=== PATIENT | male | born 1990 | race Caucasian/White ===

== ENCOUNTER 2023-10-21 08:54 | Outpatient (CLI) | payer MEDICAID ==
[~2023-10-21 08:54] MED LIST: GADOTERATE MEGLUMINE 10 MMOL/20 ML VIAL ONE
--- NOTE | 2023-10-21 13:59 | MRI Report ---
PROCEDURE: Brain W/WO INDICATIONS: MIGRAINES CONTRAST: 12.8ml Clariscan TECHNIQUE: Noncontrast axial T1 spin echo, axial T2 fast spin echo, sagittal and axial FLAIR, coronal T2 fast sp in echo, axial gradient echo, axial diffusion and ADC through the brain. After the administration of contrast, axial and coronal T1 spin echo with fat saturation through the brain. COMPARISON: None. FINDINGS: Image quality: Excellent. CSF spaces: Basal cisterns are patent. No extra-axial fluid collections. Ventricles are normal in size and shape. Brain: No midline shift. No intracranial bleeds or masses. No abnormal intracranial enhancement. There is cerebral volume loss for age. There is periventricular white matter chronic small vessel is chemic change. The brainstem appears normal. Diffusion-weighted images demonstrate no acute ischemi c insults. No chronic ischemic insults. Normal intravascular flow voids are present. Skull and face: Calvarial marrow is normal in signal. Orbits appear normal. Sinuses: Sinuses and to a mild scattered mucosal thickening. Minimal appearance of frothy fluid is p resent within the sphenoid sinuses. Mastoid air cells are clear. IMPRESSION: Mild frothy fluid within the sphenoid sinus suggestive of acute/subacute sinusitis. Reviewed by: Claudia Dudley MD on 10/21/2023 1:58 PM PST Approved by: Claudia Dudley MD on 10/21/2023 1:58 PM PST Station ID: [id number]
[2023-10-21] MEDS: GADOTERATE MEGLUMINE 10 MMOL/20 ML VIAL IVP ONE (16:03)
== END 2023-10-21 08:55 | disposition home or self-care (01) ==
LOC: DI 08:54
PROVIDERS: ATTEND Physician Assistant
DX: G43.909 Migraine, unspecified, not intractable, without status migrainosus (principal); J34.89 Other specified disorders of nose and nasal sinuses
CPT/HCPCS: 70553; A9575

== ENCOUNTER 2023-12-09 12:37 | Outpatient (CLI) | payer MEDICAID ==
--- NOTE | 2023-12-09 13:29 | Sleep Patient Instructions ---
Sleep Center Visit Summary - Patient Visit Information Reason for Visit: Initial consult for evaluation of sleep disordered breathing and other sleep issues. - Patient Instructions Instructions Attached: Sleep Study Home Monitor Additional Instructions: You will be completing a sleep study, either an in-lab polysomnography (PSG) or home sleep study (HST). You will follow-up in the sleep care office after the sleep study is completed to hear the results and talk about therapy, if needed. You will be called by our office staff to schedule this appointment, but you may contact us with any questions. - Clinic Information Contact: [facility] [address] [place] [address] [email or web address] T: [phone]
--- NOTE | 2023-12-09 13:34 | SLEEP CARE CONSULTATION ---
Information from patient questionnaire entered by Daniel Calderon. I have reviewed and concur with the information entered by Daniel Calderon. This document represents the service I personally performed and the decisions made by me, Zena Trevino ARNP. History of Present Illness Service Date and Time: 12/09/2023 1237 Reason for Visit: New patient, Previously diagnosed sleep apnea Chief Complaint: reports: Unrefreshed sleep, Excessive daytime sleepiness, Observed pauses in breathing, Fatigue, Frequent awakenings at night Date of Onset: 20 + years Usual bedtime: 0200 Time it takes to fall asleep: Varies Snores at night: Yes Observed to quit breathing while asleep: Yes Sleeps alone due to snoring: No (N/A) Number of times waking at night: Depends on various factors Reasons for waking at night: reports: Gasping for air, Pain, Bathroom, Other (Noise, cold, unknown reasons). denies: Choking Toss, Turn, or Twitch while sleeping: Yes Recalls having dreams: Yes Usually gets out of bed at: Try for noon - 2 at latest Feels refreshed in the morning: No Morning headache: Yes (2 times a week; Usually resolves with coffee, smokes, meds) Sleepy or fatigued during the day: Yes Ever fallen asleep while driving: No Takes day naps: Yes (Sometimes; 2 times a week at the most) Dreams during day naps: No (I don't recall any) Prior sleep studies: Yes Year and Where: [place] [address] sleep center? Years ago Additional HPI information: I had the pleasure of seeing BUCKY TRINIDAD today regarding the possibility of him having a sleep disorder. His current complaints are excessive daytime sleepiness, fatigue, frequent night awakenings, observed pauses in breathing and unrefreshed sleep. He was diagnosed in his early teens with sleep apnea and was on a PAP device. He has been on the streets for 17 years and has been unable to use a CPAP. He is now with a girlfriend and has a 11 year old daughter too. He has moved here from [place]. He is trying to get his life together and wants to be able to rest well. He did rest well when using his CPAP when he was a teenager after he got used to using it. He is trying to regulate his sleep and a schedule so that he can hold a regular job. He does snore and have pauses of breathing when sleeping. He does not wake up feeling refreshed and will sometimes wake up with headaches. He states that headaches have improved with him getting on medications. - Parasomnia Symptoms Ever been unable to move upon waking from sleep: Yes (Sometimes?) Walks in sleep: No Talks in sleep: Yes Ever acted out dreams in sleep: No Ever felt weak in the knees when startled or emotional: No Bothered by creepy, crawly, restless sensations in legs: Yes (Sometimes; fidgits during the day; has ADHD) Problems with memory or concentration: Yes (both) Subjective Initial [place] Sleepiness Scale score: 9 (in 2023) Past Medical History Past Medical History: reports: Anxiety, Asthma, Depression, Attention deficit Social History The patient is not employed. Patient is single and lives in [place]. Have you smoked in the past 12 months: Yes Cigarettes per day (20/pack): 20 Years of smokin Smoking Pack Years: 18.0 Alcohol use: No Caffeine use: Yes Caffeine amount and frequency: Cup of coffee, maybe two daily Family History Family history of sleep disordered breathing: Yes Family Hx Sleep Apnea: Father: Snoring, Sleep apnea - Treated Allergies and Home Medications Known drug allergies: No Drug allergies reviewed: Yes Home medication list reviewed: Yes (as listed) Allergy and home medication list: Allergies No Known Drug Allergies Allergy (Verified 12/09/23 13:23) Home Medications Albuterol See Rx Instructions .ROUTE .COMPLEX 12/09/23 [History] Albuterol Sulfate See Rx Instructions .ROUTE .COMPLEX 12/09/23 [History] Breyna 160-4.5 Mcg Inhaler See Rx Instructions .ROUTE .COMPLEX 12/09/23 [History] Fluticasone See Rx Instructions .ROUTE .COMPLEX 12/09/23 [History] Gabapentin 800 mg ORAL BID 12/09/23 [History] Hydroxyzine HCl 50 mg ORAL DAILY 12/09/23 [History] Sumatriptan See Rx Instructions .ROUTE .COMPLEX 12/09/23 [History] Topiramate See Rx Instructions .ROUTE .COMPLEX 12/09/23 [History] Review of Systems Weight gain over past 5 years: 0 Weight loss over past 5 years: 0 Cardiovascular: denies: high blood pressure Respiratory: reports: shortness of breath, chronic cough Gastrointestinal: denies: heartburn Neurological: reports: headaches, gait or balance problems (Balance problems) Psychiatric: reports: Attention Deficit Hyperactivity, anxiety, depression Ear/Nose/Throat: reports: nasal congestion, sinus problems, dry mouth/throat. denies: tonsillectomy Endocrine: reports: sluggishness (/tired), too hot or cold, excessive thirst Musculoskeletal: reports: joint pain (/stiffness), neck pain, back pain, joint swelling, muscle pain or cramping (Muscle pain) Physical Exam Vital signs obtained and entered by: Zena Mckinney NP Blood Pressure: 116/70 Cuff size: regular (right) Heart Rate: 71 O2 Saturation: 97 Height: 5 ft 9 in Weight: 154 lb Body Mass Index: 22.7 BMI Classification: Normal Neck circumference: 15.2 (inches) Mouth and throat: narrow oropharynx Soft palate: long Hard palate: normal Uvula: long, edematous Uvula visualization: 25% Mallampati Class III Tongue: normal in size Tonsils: small Neck: normal w/o lymphadenopathy or thyromegaly Heart: regular rate and rhythm Lungs: clear bilaterally Impression and Plan 1. Suspected Obstructive Sleep Apnea-Hypopnea Syndrome, as previously diagnosed as a teenager and as suggested by a history of loud and irregular snoring, observed cessation of breath while asleep, gasping or choking in sleep, morning headache, frequent awakening during the night, unrefreshed sleep, cognitive impairment, and excessive daytime sleepiness. Narrow oropharynx and obesity are common predisposing factors for obstructive sleep apnea-hypopnea syndrome. I recommend proceeding to polysomnography to confirm the diagnosis and to assess severity. If the patient has significant sleep disordered breathing, a manual CPAP titration study will also be performed to find the optimal treatment pressure. I informed the patient of what the sleep studies involve and after some discussion, obtained agreement to proceed. The pathophysiology of o bstructive sleep apnea-hypopnea syndrome was discussed with the patient and health risks of cardiovascular and cerebrovascular disease if not treated. Risks of drowsy driving discussed in detail and patient advised to avoid long distance driving and to sample puller at the first sign of drowsiness. Patient agreed to plan. * Schedule polysomnography * Avoid long distance driving or driving when feeling sleepy. * Avoid alcohol, sedative and muscle relaxant around bedtime. * Review instructions provided by trained office staff on how to prepare for the sleep study. * Return for follow-up after sleep study completed. Plan: PSG/HST Visit Type: In Office Time Spent with Patient (minutes): 34 Provider Statement: I spent 100% of the Face to Face Visit with the patient with greater than 50% spent counseling the patient and coordination of care.
[2023-12-09 13:43] VITALS: BP 116/70; O2SAT 97
== END 2023-12-09 12:38 | disposition home or self-care (01) ==
LOC: SC 12:37
PROVIDERS: ATTEND Nurse Practitioner Family
DX: G47.33 Obstructive sleep apnea (adult) (pediatric) (principal)
CPT/HCPCS: 99203; 99212

== ENCOUNTER 2024-01-06 13:51 | Outpatient (CLI) | payer MEDICAID | END 2024-01-06 13:52 | disposition home or self-care (01) | LOC: SC 13:51 | PROVIDERS: ATTEND Nurse Practitioner Family | DX: G47.10 Hypersomnia, unspecified (principal); R53.83 Other fatigue; G47.8 Other sleep disorders; R51.9 Headache, unspecified; R06.83 Snoring; R06.81 Apnea, not elsewhere classified; F32.A Depression, unspecified | CPT/HCPCS: 95806 ==

== ENCOUNTER 2024-01-29 15:34 | Outpatient (CLI) | payer MEDICAID ==
--- NOTE | 2024-01-29 15:55 | Sleep Patient Instructions ---
Sleep Center Visit Summary - Patient Visit Information Reason for Visit: Sleep study follow-up - Patient Instructions Additional Instructions: Your sleep study today was negative for significant sleep disordered breathing. However, you did have elevated respiratory episodes when sleeping on your back. You should avoid sleeping on your back to control these respiratory episodes. You will be completing a sleep study, either an in-lab polysomnography (PSG) or home sleep study (HST). You will follow-up in the sleep care office after the sleep study is completed to hear the results and talk about therapy, if needed. You will be called by our office staff to schedule this appointment, but you may contact us with any questions. - Clinic Information Contact: [facility] [address] [place] [address] [email or web address] T: [phone]
--- NOTE | 2024-01-29 16:01 | SLEEP CARE CONSULTATION ---
Information from patient questionnaire entered by Serenity Diaz. I have reviewed and concur with the information entered by Serenity Diaz. This document represents the service I personally performed and the decisions made by , Zena Trevino ARNP. History of Present Illness Service Date and Time: 01/29/20241533 Initial [place] Sleepiness Scale score: 9 (in 2023) Current [place] Sleepiness Scale score: 4 (01/29/24) Additional HPI information: BUCKY TRINIDAD returns for follow up and results of the recently performed home sleep study. The patient was informed of the following findings: No significant sleep disordered breathing with an average AHI of 4.4 and denae oxygen saturation of 90%. His supine AHI is minimally elevated at 5.1. I explained the pathophysiology behind obstructive sleep apnea. Patient does not have sleep apnea and was advised how weight gain could increase the risk of developing sleep apnea in the future. Patient does not have significant sleep disordered breathing but has elevated AHI in supine position so advised positional therapy. Methods to achieve positional management therapy were discussed; such as, positioning with pillows, wearing a T-shirt with tennis balls sewn into the back or commercially available products. Patient has moderate snoring. Snoring can also be treated with an oral appliance from a dentist. Advised to check insurance coverage. In addition, an ENT evaluation can be do to see if other treatment is indicated. Patient does not drink alcohol. Patient was cautioned about risks of drowsy driving until sleepiness symptoms resolve. Patient denies drowsy driving but he does not drive. Sleep Study - Results Type of Sleep Study: Home sleep study (COMPLETED 01/07/24) Prior sleep studies: Yes Year and Where: [facility] [address] [facility]? Years ago Polysomnography/Home Sleep Study results: Physician Impression: The quality of the study is good. The length of the study is adequate (> 240 minutes). Please also see the tabulated and graphic data. 1. No significant sleep disordered breathing, with an AHI of 4.4/hr and denae SaO2 of 90%. During the study, the patient had 23 apneas (23 obstructive, 0 central, 0 mixed) and 12 hypopneas. The longest episode lasted 109.5 seconds. The few respiratory events occurred more frequently during supine sleep (supine AHI was 5.1 and non-supine, 3.09). Recommendation: No treatment is necessary. However, given the borderline results, an in-laboratory polysomnography is recommended for a more accurate evaluation. Allergies and Home Medications Known drug allergies: No Drug allergies reviewed: Yes Home medication list reviewed: Yes (no changes) Allergy and home medication list: Allergies No Known Drug Allergies Allergy (Verified 01/27/24 14:41) Review of Systems Review of systems same as previous: Yes (NO CHANGE) Physical Exam Vital signs obtained and entered by: SERENITY Sanabria MA Blood Pressure: 132/72 (LEFT ARM) Cuff size: regular Heart Rate: 73 O2 Saturation: 98 Height: 5 ft 9 in Weight: 153 lb 3.2 oz Body Mass Index: 22.6 BMI Classification: Normal Impression and Plan 1. Snoring but no significant sleep disordered breathing. However, supine AHI was minimally elevated and he should avoid sleeping supine. An oral appliance can also be used for snoring. This would require a dental consultation. Patient cautioned not to use other online appliances as can cause bite issues. A list of accredited dentists in area and one local dentist who makes oral appliances given. Patient is advised to check if insurance will cover. An ENT consult can also be helpful to determine if any other treatment is an option. 2. Suspected Obstructive Sleep Apnea-Hypopnea Syndrome, as suggested by a history of irregular snoring, observed cessation of breath while asleep, frequent awakening during the night, unrefreshed sleep, cognitive impairment, and excessive daytime sleepiness. Patient completed home study which was borderline results with a minimally elevated supine AHI. I would like to have him return for an in lab sleep study to verify results. I recommend proceeding to polysomnography to confirm the diagnosis and to assess severity. I obtained agreement to proceed. The pathophysiology of obstructive sleep apnea-hypopnea syndrome was discussed with the patient and health risks of cardiovascular and cerebrovascular disease if not treated. Risks of drowsy driving discussed in detail and patient advised to avoid long distance driving and to boat puller at the first sign of drowsiness. Patient agreed to plan. * Schedule polysomnography +- manual CPAP titration study and return in 1-2 weeks after the study to discuss result and initiate therapy. * Avoid long distance driving or driving when feeling sleepy. * Avoid alcohol, sedative and muscle relaxant around bedtime. * Attempt to lose weight. * Review instructions provided by trained office staff on how to prepare for the sleep study. * Return for follow-up after sleep study completed. Follow up with Sleep Care in: other (after in lab study) Plan: in lab PSG and follow up Visit Type: In Office Time Spent with Patient (minutes): 20 Provider Statement: I spent 100% of the Face to Face Visit with the patient with greater than 50% spent counseling the patient and coordination of care.
[2024-01-29 16:14] VITALS: BP 132/72; O2SAT 98
== END 2024-01-29 15:35 | disposition home or self-care (01) ==
LOC: SC 15:34
PROVIDERS: ATTEND Nurse Practitioner Family
DX: R06.83 Snoring (principal); R06.81 Apnea, not elsewhere classified; G47.8 Other sleep disorders; R41.89 Other symptoms and signs involving cognitive functions and awareness; G47.10 Hypersomnia, unspecified; F32.A Depression, unspecified
CPT/HCPCS: 99212; 99213

== ENCOUNTER 2024-02-15 11:44 | Outpatient (CLI) | payer MEDICAID ==
--- NOTE | 2024-02-15 14:09 | XRAY Report ---
PROCEDURE: Scapula 2V LT INDICATIONS: SHOULDER PAIN, LEFT TECHNIQUE: 2 views of the scapula were acquired. COMPARISON: None FINDINGS: Bones: No displaced fracture or dislocation Soft tissues: No suspicious calcifications. IMPRESSION: No acute radiographic abnormality. If there is high concern for further derangement, consider MRI nicholas luation. Reviewed by: Bam Agarwal MD on 02/15/2024 2:08 PM PDT Approved by: Bam Agarwal MD on 02/15/2024 2:08 PM PDT Station ID: [id number]
--- NOTE | 2024-02-15 14:09 | XRAY Report ---
PROCEDURE: Shoulder 2+V LT INDICATIONS: SHOULDER PAIN, LEFT TECHNIQUE: 3 views of the shoulder were acquired. COMPARISON: None. FINDINGS: Bones: No acute displaced fracture or dislocation. Soft tissues: No suspicious calcifications. IMPRESSION: No acute radiographic abnormality. If there is high concern for further derangement, consider MRI nicholas luation. Reviewed by: Bam Agarwal MD on 02/15/2024 2:07 PM PDT Approved by: Bam Agarwal MD on 02/15/2024 2:07 PM PDT Station ID: [id number]
--- NOTE | 2024-02-15 14:10 | XRAY Report ---
PROCEDURE: Clavicle LT INDICATIONS: CLAVICLE PAIN TECHNIQUE: 2 views of the clavicle were acquired. COMPARISON: None. FINDINGS: Bones: No acute displaced fracture. No dislocation. Soft tissues: No suspicious calcifications. IMPRESSION: No acute radiographic abnormality. If there is high concern for further derangement, consider MRI nicholas luation. Reviewed by: Bam Agarwal MD on 02/15/2024 2:09 PM PDT Approved by: Bam Agarwal MD on 02/15/2024 2:09 PM PDT Station ID: [id number]
== END 2024-02-15 11:45 | disposition home or self-care (01) ==
LOC: DI.N 11:44
PROVIDERS: ATTEND Physician Assistant
DX: M25.512 Pain in left shoulder (principal)

== ENCOUNTER 2024-02-25 19:26 | Outpatient (CLI) | payer MEDICAID | END 2024-02-25 19:27 | disposition home or self-care (01) | LOC: SC 19:26 | PROVIDERS: ATTEND Nurse Practitioner Family | DX: G47.10 Hypersomnia, unspecified (principal); G47.8 Other sleep disorders; R06.83 Snoring; R06.81 Apnea, not elsewhere classified; F32.A Depression, unspecified | CPT/HCPCS: 95810 ==

== ENCOUNTER 2024-03-29 13:25 | Outpatient (CLI) | payer MEDICAID ==
--- NOTE | 2024-03-29 14:09 | Sleep Patient Instructions ---
Sleep Center Visit Summary - Patient Visit Information Reason for Visit: Sleep study follow-up - Patient Instructions Instructions Attached: Snoring Tips Prevent Additional Instructions: Your sleep study today was negative for significant sleep disordered breathing. You were found to have episodes of snoring. There are different ways to control snoring including weight loss, oral devices made by a dentist or surgical options through ENT specialist. You should not use oral devices that do not fit properly because they can affect your bite. You should also check insurance coverage of oral devices for snoring because they may not be cover well. You may obtain a referral to an ENT specialist through your primary provider. Follow-up as needed. - Clinic Information Contact: [facility] [address] [place] [address] [email or web address] T: [phone]
--- NOTE | 2024-03-29 14:11 | SLEEP CARE CONSULTATION ---
Information from patient questionnaire entered by Serenity Diaz. I have reviewed and concur with the information entered by Serenity Diaz. This document represents the service I personally performed and the decisions made by , Zena Trevino ARNP. History of Present Illness Service Date and Time: 03/29/2024 1325 Initial [place] Sleepiness Scale score: 9 (in 2023) Current [place] Sleepiness Scale score: 7 (03/29/24) Additional HPI information: BUCKY TRINIDAD returns for follow up and results of the recently performed polysomnography. The patient was informed of the following findings: No significant sleep disordered breathing with an average AHI of 2.5 and denae oxygen saturation of 89%. I explained the pathophysiology behind obstructive sleep apnea. Patient does not have sleep apnea and was advised how weight gain could increase the risk of developing sleep apnea in the future. Patient has light to loud snoring. Patient instructed to contact PCP for referral. Snoring can also be treated with an oral appliance from a dentist. Advised to check insurance coverage. In addition, an ENT evaluation can be do to see if other treatment is indicated. Patient does not drink alcohol. Patient was cautioned about risks of drowsy driving until sleepiness symptoms resolve. Patient denies drowsy driving because he does not drive. He walks everywhere he needs to go. Sleep Study - Results Type of Sleep Study: Polysomnography (COMPLETED 01/07/24 COMPLETED ) Prior sleep studies: Yes Year and Where: [place] [address] sleep center? Years ago Polysomnography/Home Sleep Study results: IMPRESSION: The quality of the study is good. The patient had normal sleep efficiency. The sleep architecture was abnormal for mild sleep fragmentation and reduced amount of time spent in slow wave sleep (N3). Respiratory monitoring showed no significant sleep disordered breathing (AHI = 2.5) or hypoxia (denae oxygen saturation of 89%). The few respiratory events occurred mainly during supine sleep (supine AHI = 3.4; non-supine = 0.45). Snore was light to loud in intensity. There was no significant periodic leg movement of sleep. Cardiac rhythm was normal sinus rhythm without significant arrhythmia. No abnormal behavior (parasomnia) observed during the night. Allergies and Home Medications Known drug allergies: No Drug allergies reviewed: Yes Home medication list reviewed: Yes (no changes) Allergy and home medication list: Allergies No Known Drug Allergies Allergy (Verified 03/29/24 13:40) Review of Systems Review of systems same as previous: Yes (NO CHANGE) Physical Exam Vital signs obtained and entered by: 119/60 Blood Pressure: 119/60 (RIGHT ARM) Cuff size: regular Heart Rate: 72 O2 Saturation: 97 Height: 5 ft 9 in Weight: 150 lb 3.2 oz Body Mass Index: 22.1 BMI Classification: Normal Impression and Plan 1. Snoring but no significant sleep disordered breathing. Patient advised that often weight loss will reduce snoring as well as apnea risk. An oral appliance can also be used for snoring. This would require a dental consultation. Patient cautioned not to use other online appliances as can cause bite issues. Patient is advised to check if insurance will cover. An ENT consult can also be helpful to determine if any other treatment is an option. * Maintain healthy weight. * Return as needed for follow up. Follow up with Sleep Care in: as needed Visit Type: In Office Time Spent with Patient (minutes): 12 Provider Statement: I spent 100% of the Face to Face Visit with the patient with greater than 50% spent counseling the patient and coordination of care.
[2024-03-29 14:17] VITALS: BP 119/60; O2SAT 97
== END 2024-03-29 13:26 | disposition home or self-care (01) ==
LOC: SC 13:25
PROVIDERS: ATTEND Nurse Practitioner Family
DX: R06.83 Snoring (principal)
CPT/HCPCS: 99212